=== PATIENT | female | born 1975 ===

== ENCOUNTER 2016-10-04 10:10 | Emergency (ER) | payer MEDICAID ==
[2016-10-04 10:23] VITALS: RESP 18
[2016-10-04 10:30] VITALS: BMI 23.3
[2016-10-04] MEDS ORDERED: Sodium Chloride 0.9% 1,000 ML IV ONE (11:10)
[2016-10-04] MEDS ORDERED: Sodium Chloride 0.9% 1,000 ML ONE (11:39)
[2016-10-04 11:44] LABS: BASO # 0.1 K/uL (0.0-0.2); BASO % 1.3 % (0.0-2.0); EOS # 0.6 K/uL (0.0-0.7); HEMATOCRIT 36.5 % (34.0-47.0); LYMPH # 2.5 K/uL (1.0-4.3); LYMPH % 28.5 % (20.0-40.0); MEAN CELL VOLUME 89.7 fL (81.0-99.0); MEAN CORPUSCULAR HEMOGLOBIN 29.7 pg (27.0-31.0); MEAN CORPUSCULAR HGB CONC 33.1 g/dL (33.0-37.0); MEAN PLATELET VOLUME 8.6 fL (7.2-11.7); MONO # 0.5 K/uL (0.0-0.8); MONO % 6.1 % (0.0-10.0); RED CELL DISTRIBUTION WIDTH 13.6 % (11.5-14.5); WHITE BLOOD COUNT 8.7 K/uL (4.8-10.8)
--- NOTE | 2016-10-04 11:46 | C.PDOC ---
History Of Present Illness 41 year old patient presents to the emergency department complaining of nausea and vomiting since yesterday. Patient states the fluid is yellow. Patient also complains of diarrhea and epigastric pain. The epigastric pain has a burning sensation that "feels like fire." Patient denies fever, chills, sick contacts, back pain, numbness, weakness, or urinary symptoms. Time Seen by Provider: 10/04/16 10:48 Chief Complaint (Nursing): Abdominal Pain History Per: Patient History/Exam Limitations: no limitations Onset/Duration Of Symptoms: Days (1) Current Symptoms Are (Timing): Still Present Context: Other Severity: Mild Pain Scale Rating Of: 3 Location Of Pain/Discomfort: Epigastric Radiation Of Pain To:: None Quality Of Discomfort: Burning, "Pain" Associated Symptoms: Nausea, Vomiting, Diarrhea Exacerbating Factors: None Alleviating Factors: None Last Bowel Movement: Today Recent travel outside of the [place]: No Abnormal Vaginal Bleeding: No Past Medical History Reviewed: Historical Data, Nursing Documentation, Vital Signs Vital Signs: Last Vital Signs Temp 98.6 F 10/04/16 13:36 Pulse 65 10/04/16 13:36 Resp 18 10/04/16 13:36 BP 123/66 10/04/16 13:36 Pulse Ox 100 10/04/16 13:36 Family History: States: Unknown Family Hx - Social History Hx Alcohol Use: Yes Hx Substance Use: No - Immunization History Hx Tetanus Toxoid Vaccination: No Hx Influenza Vaccination: No Hx Pneumococcal Vaccination: No Review Of Systems Except As Marked, All Systems Reviewed And Found Negative. Constitutional: Negative for: Fever, Chills Gastrointestinal: Positive for: Nausea, Vomiting, Abdominal Pain, Diarrhea Genitourinary: Negative for: Dysuria Musculoskeletal: Negative for: Back Pain Neurological: Negative for: Weakness, Numbness Physical Exam - Physical Exam Appears: Non-toxic, No Acute Distress Skin: Warm, Dry Head: Atraumatic, Normacephalic Eye(s): bilateral: Normal Inspection, PERRL, EOMI Oral Mucosa: Dry Neck: Normal ROM, Supple Chest: Symmetrical Cardiovascular: Rhythm Regular Respiratory: Normal Breath Sounds, No Rales, No Rhonchi, No Wheezing Gastrointestinal/Abdominal: Soft, Tenderness ((+)epigastric (-)RUQ), No Guarding , No Rebound Back: Normal Inspection, No CVA Tenderness Extremity: Normal ROM Neurological/Psych: Oriented x3, Normal Speech, Normal Cognition Gait: Steady ED Course And Treatment - Laboratory Results Result Diagrams: 10/04/16 11:41 10/04/16 11:41 Lab Interpretation: Normal O2 Sat by Pulse Oximetry: 100 (RA) Pulse Ox Interpretation: Normal Progress Note: Plan: -blood work. -Pepcid, Zofran, IV fluids. -Urinalysis Medical Decision Making Medical Decision Making: pt reports nausea reolved, decreased abdominbal pain. will order maalox and po challenge, and re-eval. 140 pt still with mild epigastric pain. will give toradol and discharge with pepcid and pmd f/u Disposition Counseled Patient/Family Regarding: Diagnosis, Need For Followup - Disposition Disposition: HOME/ ROUTINE Disposition Time: 13:43 Condition: IMPROVED Additional Instructions: Take medication as directed. Use Tylenol or Motrin. Drink tea, water, broth. Eat bland food like plain white rice, applesauce, toast tea. Follow up with your doctor on Friday. Return to ER for any worsening pain. Prescriptions: Famotidine [Pepcid] 20 mg PO DAILY #20 tab Forms: Gen Discharge Inst Lithuanian - Clinical Impression Clinical Impression: Gastroenteritis - PA / LIABILITY ANALYST / Resident Statement MD/DO has reviewed & agrees with the documentation as recorded. - Scribe Statement The provider has reviewed the documentation as recorded by the Scribe Elvira Rico All medical record entries made by the Scribe were at my direction and personally dictated by me. I have reviewed the chart and agree that the record accurately reflects my personal performance of the history, physical exam, medical decision making, and the department course for this patient. I have also personally directed, reviewed, and agree with the discharge instructions and disposition.
[2016-10-04 11:51] LABS: RBC URINE < 1 /hpf (0-3); URINE BACTERIA RARE (<OCC); URINE BILIRUBIN NEGATIVE (NEGATIVE); URINE BLOOD NEGATIVE (NEGATIVE); URINE COLOR Yellow (YELLOW); URINE GLUCOSE (UA) NORMAL (Normal); URINE KETONE NEGATIVE (NEGATIVE); URINE LEUKOCYTE ESTERASE NEG Leu/uL (Negative); URINE PROTEIN NEGATIVE (NEGATIVE); URINE UROBILINOGEN NORMAL mg/dL (0.2-1.0); WBC URINE 1 /hpf (0-5)
[2016-10-04 11:52] LABS: CHLORIDE 100 mmol/L (98-107); POTASSIUM 4.4 mmol/L (3.6-5.2); SODIUM 136 mmol/L (132-148)
[2016-10-04 11:54] LABS: ALB/GLOB RATIO 1.3 (1.0-2.1); ALKALINE PHOSPHATASE 51 U/L (38-126); AST/SGOT 26 U/L (14-36); BILIRUBIN,TOTAL 0.8 mg/dL (0.2-1.3); CARBON DIOXIDE 22 mmol/L (22-30); GFR AFRICAN-AMERICAN > 60; TOTAL PROTEIN 6.9 g/dL (6.3-8.3)
[2016-10-04 11:55] LABS: ALT/SGPT 25 U/L (9-52); BLOOD UREA NITROGEN 15 mg/dL (7-17); CALCIUM 8.7 mg/dl (8.6-10.4); GLUCOSE,RANDOM 84 mg/dL (65-105)
[2016-10-04] MEDS ORDERED: Aluminum Hydroxide/Magnesium Hydroxide Susp (30 mL) PO STA (12:23)
[2016-10-04] MEDS ORDERED: Aluminum Hydroxide/Magnesium Hydroxide Susp (30 mL) ONE (12:40)
[2016-10-04 13:59] VITALS: BP 107/64; PULSE 66; TEMP 98.3; O2SAT 99
== END 2016-10-04 13:55 | disposition home or self-care (01) ==
LOC: C.ER 10:10
DX: K52.9 Noninfective gastroenteritis and colitis, unspecified (principal)
CPT/HCPCS: 80053; 81001; 83690; 85025; 96361; 96372; 96374; 96375; 99285; J1885; J2405; J7040

== ENCOUNTER 2017-05-31 22:56 | Inpatient (IN) | payer MEDICAID ==
[2017-05-31 22:56] VITALS: BMI 23.3
--- NOTE | 2017-05-31 23:22 | C.PDOC ---
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 Patient states not having similar symptoms before, denies any other physical complaints. Time Seen by Provider: 05/31/17 23:13 Chief Complaint (Nursing): Abdominal Pain History Per: Patient History/Exam Limitations: no limitations Onset/Duration Of Symptoms: Hrs Current Symptoms Are (Timing): Still Present Context: Food Location Of Pain/Discomfort: Diffuse Radiation Of Pain To:: None Quality Of Discomfort: "Pain" Associated Symptoms: denies: Fever, Chills, Nausea, Vomiting, Diarrhea, Loss Of Appetite Exacerbating Factors: None Alleviating Factors: None Recent travel outside of the [place]: No Additional History Per: Patient Abnormal Vaginal Bleeding: No Past Medical History Reviewed: Historical Data, Nursing Documentation, Vital Signs Vital Signs: Last Vital Signs Temp 98.1 F 06/01/17 02:15 Pulse 80 06/01/17 02:15 Resp 24 06/01/17 02:15 BP 113/50 L 06/01/17 02:15 Pulse Ox 97 06/01/17 02:15 - Medical History PMH: No Chronic Diseases Surgical History: No Surg Hx Family History: States: Unknown Family Hx - Social History Hx Alcohol Use: Yes Hx Substance Use: No - Immunization History Hx Tetanus Toxoid Vaccination: No Hx Influenza Vaccination: No Hx Pneumococcal Vaccination: No Review Of Systems Constitutional: Negative for: Fever, Chills Cardiovascular: Negative for: Chest Pain Respiratory: Negative for: Cough, Shortness of Breath Gastrointestinal: Positive for: Abdominal Pain (Diffuse). Negative for: Nausea , Vomiting Genitourinary: Negative for: Dysuria, Hematuria, Vaginal Discharge, Vaginal Bleeding Musculoskeletal: Negative for: Back Pain Physical Exam - Physical Exam Appears: Non-toxic, No Acute Distress Skin: Warm, Dry Head: Atraumatic, Normacephalic Nose: No Epistaxis Oral Mucosa: Moist Cardiovascular: Rhythm Regular Respiratory: No Decreased Breath Sounds, No Accessory Muscle Use Gastrointestinal/Abdominal: Soft, Tenderness (Diffuse mostly epigastric region) Neurological/Psych: Oriented x3 ED Course And Treatment - Laboratory Results Result Diagrams: 05/31/17 23:44 05/31/17 23:44 Medical Decision Making Medical Decision Making: CT abdo/pelvis IV contrast: EXAM: CT Abdomen and Pelvis With Intravenous Contrast CLINICAL HISTORY: 41 years old, female; Pain; Abdominal pain; Prior surgery; Surgery type: Cholesyctomy TECHNIQUE: Axial computed tomography images of the abdomen and pelvis with intravenous contrast. All CT scans at this facility use one or more dose reduction techniques, viz.: automated exposure control; ma/kV adjustment per patient size (including targeted exams where dose is matched to indication; i.e. head); or iterative reconstruction technique. Coronal and sagittal reformatted images were created and reviewed. CONTRAST: 100 mL of [id number] administered intravenously. COMPARISON: No relevant prior studies available. FINDINGS: Lower thorax: No acute findings. . ABDOMEN: Liver: No acute abnormality as visualized. No mass. Gallbladder and bile ducts: No acute abnormality as visualized. No calcified stones. No ductal dilation. Pancreas: No acute abnormality as visualized. Spleen: No splenomegaly. Adrenals: No acute abnormality as visualized. Kidneys and ureters: Symmetric enhancement. No hydronephrosis. Stomach and bowel: No obstruction. Appendix: Dilated to 1.3 cm. Evidence of appendicoliths. Bowel wall appears thickened. PELVIS: Bladder: No acute abnormality as visualized. Reproductive: IUD in the uterus. Dominant 2.3 cm right ovarian follicle/cyst. ABDOMEN and PELVIS: Intraperitoneal space: Small amount of fluid/inflammatory stranding in the right lower quadrant. No free air. No significant fluid collection. Bones: Mild degenerative changes. Soft tissues: Bilateral breast prostheses. Extensive stranding with evidence of granulomas in the bilateral gluteal and pubic subcutaneous tissue, correlate with history. Vasculature: No acute abnormality as visualized. No abdominal aortic aneurysm. Lymph nodes: No acute abnormality as visualized. No enlarged lymph nodes. IMPRESSION: Appearance most consistent with acute appendicitis. Correlate clinically. Please see additional details/findings as above. 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 he disc w Dr Xiao- will admit plan for OR n am Disposition - Disposition Disposition: HOSPITALIZED Disposition Time: 03:18 Condition: STABLE Forms: wufoo (Telugu) - Clinical Impression Clinical Impression: Acute appendicitis - Scribe Statement The provider has reviewed the documentation as recorded by the Scribe Lonny Olvera All medical record entries made by the Scribe were at my direction and personally dictated by me. I have reviewed the chart and agree that the record accurately reflects my personal performance of the history, physical exam, medical decision making, and the department course for this patient. I have also personally directed, reviewed, and agree with the discharge instructions and disposition.
[2017-05-31] MEDS ORDERED: Aluminum Hydroxide/Magnesium Hydroxide Susp (30 mL) PO STA (23:25)
[2017-05-31] MEDS ORDERED: Lactated Ringer's 1,000 ML IV ONE (23:25)
[2017-05-31] MEDS ORDERED: Aluminum Hydroxide/Magnesium Hydroxide Susp (30 mL) ONE (23:33)
[2017-05-31 23:46] LABS: BASO # 0.1 K/uL (0.0-0.2); BASO % 0.9 % (0.0-2.0); EOS # 0.4 K/uL (0.0-0.7); EOS % 4.1 % (0.0-4.0); HEMATOCRIT 37.2 % (34.0-47.0); LYMPH # 3.6 K/uL (1.0-4.3); LYMPH % 38.9 % (20.0-40.0); MEAN CELL VOLUME 89.6 fL (81.0-99.0); MEAN CORPUSCULAR HEMOGLOBIN 29.9 pg (27.0-31.0); MEAN CORPUSCULAR HGB CONC 33.4 g/dL (33.0-37.0); MONO # 0.7 K/uL (0.0-0.8); MONO % 7.2 % (0.0-10.0); NRBC % 0.1 % (0.0-2.0); RED CELL DISTRIBUTION WIDTH 12.4 % (11.5-14.5); WHITE BLOOD COUNT 9.3 K/uL (4.8-10.8)
[2017-06-01 00:02] LABS: ALB/GLOB RATIO 1.5 (1.0-2.1); ALKALINE PHOSPHATASE 49 U/L (38-126); ALT/SGPT 47 U/L (9-52); AST/SGOT 39 U/L (14-36); BILIRUBIN,TOTAL 0.6 mg/dL (0.2-1.3); BLOOD UREA NITROGEN 17 mg/dL (7-17); CALCIUM 8.9 mg/dl (8.6-10.4); CARBON DIOXIDE 23 mmol/L (22-30); CHLORIDE 100 mmol/L (98-107); GFR AFRICAN-AMERICAN > 60; GLUCOSE,RANDOM 99 mg/dL (65-105); POTASSIUM 4.1 mmol/L (3.6-5.2); SODIUM 133 mmol/L (132-148); TOTAL PROTEIN 6.6 g/dL (6.3-8.3)
[2017-06-01 00:08] LABS: RBC URINE 4 /hpf (0-3); URINE BACTERIA RARE (<OCC); URINE BILIRUBIN NEGATIVE (NEGATIVE); URINE BLOOD NEGATIVE (NEGATIVE); URINE COLOR Yellow (YELLOW); URINE GLUCOSE (UA) NORMAL (Normal); URINE KETONE 1+ mg/dL (NEGATIVE); URINE LEUKOCYTE ESTERASE NEG Leu/uL (Negative); URINE PROTEIN 1+ mg/dL (NEGATIVE); URINE UROBILINOGEN NORMAL mg/dL (0.2-1.0); WBC URINE 3 /hpf (0-5)
[2017-06-01] MEDS ORDERED: Iodixanol 320 MG/ML 100 ML BOTTLE IV ONE (00:19)
[2017-06-01] MEDS ORDERED: Morphine 4 MG/ML VIAL ONE ×2 (00:28→03:21)
--- NOTE | 2017-06-01 01:52 | CT ---
EXAM: CT Abdomen and Pelvis With Intravenous Contrast CLINICAL HISTORY: 41 years old, female; Pain; Abdominal pain; Prior surgery; Surgery type: Cholesyctomy TECHNIQUE: Axial computed tomography images of the abdomen and pelvis with intravenous contrast. All CT scans at this facility use one or more dose reduction techniques, viz.: automated exposure control; ma/kV adjustment per patient size (including targeted exams where dose is matched to indication; i.e. head); or iterative reconstruction technique. Coronal and sagittal reformatted images were created and reviewed. CONTRAST: 100 mL of [id number] administered intravenously. COMPARISON: No relevant prior studies available. FINDINGS: Lower thorax: No acute findings. . ABDOMEN: Liver: No acute abnormality as visualized. No mass. Gallbladder and bile ducts: No acute abnormality as visualized. No calcified stones. No ductal dilation. Pancreas: No acute abnormality as visualized. Spleen: No splenomegaly. Adrenals: No acute abnormality as visualized. Kidneys and ureters: Symmetric enhancement. No hydronephrosis. Stomach and bowel: No obstruction. Appendix: Dilated to 1.3 cm. Evidence of appendicoliths. Bowel wall appears thickened. PELVIS: Bladder: No acute abnormality as visualized. Reproductive: IUD in the uterus. Dominant 2.3 cm right ovarian follicle/cyst. ABDOMEN and PELVIS: Intraperitoneal space: Small amount of fluid/inflammatory stranding in the right lower quadrant. No free air. No significant fluid collection. Bones: Mild degenerative changes. Soft tissues: Bilateral breast prostheses. Extensive stranding with evidence of granulomas in the bilateral gluteal and pubic subcutaneous tissue, correlate with history. Vasculature: No acute abnormality as visualized. No abdominal aortic aneurysm. Lymph nodes: No acute abnormality as visualized. No enlarged lymph nodes. IMPRESSION: Appearance most consistent with acute appendicitis. Correlate clinically. Please see additional details/findings as above.
[2017-06-01] MEDS ORDERED: Piperacill/Tazo 3.375gm in Dex 3.375 GM/50 ML BAG IVPB STA (01:56)
[2017-06-01] MEDS ORDERED: Lactated Ringer's 1,000 ML IV SCH (03:00)
--- NOTE | 2017-06-01 03:06 | CP.PCM.HP ---
History of Present Illness - History of Present Illness History of Present Illness: Surgery- Dr. Xiao 41F presented to [facility] ED with diffuse abdominal pain that started a few hours prior to arrival. Pain started suddenly while eating, with no relief. Pain is localized to the RLQ, described as sharp. No alleviating factors. Patient never had pain like this before. Associated nausea, non-bloody non-bilious vomiting x3. Denies: Fevers, chest pain, shortness of breath, diarrhea, vision changes, numbness/tingling in extremities PMH: GERD PSH: , R wrist surgery ALL: no drug allergies, tomatoes SocialHx: Denies ETOH, tobacco, recreational drug use Present on Admission - Present on Admission Any Indicators Present on Admission: No Past Patient History - Infectious Disease Hx of Infectious Diseases: None - Past Social History Smoking Status: Never Smoked - PSYCHIATRIC Hx Substance Use: No - SURGICAL HISTORY Hx Surgeries: Yes Hx Section: Yes Hx Orthopedic Surgery: Yes (Rt hand) - ANESTHESIA Hx Anesthesia: Yes Hx Anesthesia Reactions: No Meds Allergies/Adverse Reactions: Allergies Allergy/AdvReac Type Severity Reaction Status Date / Time tomato AdvReac Severe SWELLING Verified 05/31/17 23:24 Physical Exam - Constitutional Appears: Agitated - Head Exam Head Exam: ATRAUMATIC - Eye Exam Eye Exam: EOMI. absent: Scleral icterus - ENT Exam ENT Exam: Mucous Membranes Moist - Respiratory Exam Respiratory Exam: NORMAL BREATHING PATTERN. absent: Accessory Muscle Use, Respiratory Distress - Cardiovascular Exam Cardiovascular Exam: +S1, +S2 - GI/Abdominal Exam GI & Abdominal Exam: Guarding, Rebound, Soft, Tenderness. absent: Distended, Firm, Rigid Additional comments: voluntary guarding tender to palpation in RLQ +Mcburneys, +Rovsings during abd exam patient vomited clear fluid - Extremities Exam Extremities exam: Positive for: normal inspection. Negative for: calf tenderness - Neurological Exam Neurological exam: Alert, Oriented x3 - Psychiatric Exam Psychiatric exam: Normal Affect - Skin Skin Exam: Intact, Warm Results - Vital Signs Recent Vital Signs: Last Vital Signs Temp 98.1 F 06/01/17 02:15 Pulse 80 06/01/17 02:15 Resp 24 06/01/17 02:15 BP 113/50 L 06/01/17 02:15 Pulse Ox 97 06/01/17 02:15 - Labs Result Diagrams: 05/31/17 23:44 05/31/17 23:44 Labs: Laboratory Results - last 24 hr 05/31/17 05/31/17 05/31/17 23:44 23:44 23:59 WBC 9.3 RBC 4.16 Hgb 12.4 Hct 37.2 MCV 89.6 MCH 29.9 MCHC 33.4 RDW 12.4 Plt Count 255 MPV 8.0 Neut % (Auto) 48.9 L Lymph % (Auto) 38.9 [place] % (Auto) 7.2 Eos % (Auto) 4.1 H Baso % (Auto) 0.9 Neut # 4.6 Lymph # 3.6 [place] # 0.7 Eos # 0.4 Baso # 0.1 Sodium 133 Potassium 4.1 Chloride 100 Carbon Dioxide 23 Anion Gap 14 BUN 17 Creatinine 0.8 Est GFR ( Amer) > 60 Est GFR (Non-Af Amer) > 60 Random Glucose 99 Calcium 8.9 Total Bilirubin 0.6 AST 39 H ALT 47 Alkaline Phosphatase 49 Total Protein 6.6 Albumin 3.9 Globulin 2.7 Albumin/Globulin Ratio 1.5 Lipase 131 Urine Color Yellow Urine Clarity Clear Urine pH 7.0 Ur Specific [place] 1.029 Urine Protein 1+ H Urine Glucose (UA) Normal Urine Ketones 1+ H Urine Blood Negative Urine Nitrate Negative Urine Bilirubin Negative Urine Urobilinogen Normal Ur Leukocyte Esterase Neg Urine WBC (Auto) 3 Urine RBC (Auto) 4 H Ur Squamous Epith Cells 4 Urine Bacteria Rare Urine HCG, Qual 05/31/17 23:59 WBC RBC Hgb Hct MCV MCH MCHC RDW Plt Count MPV Neut % (Auto) Lymph % (Auto) [place] % (Auto) Eos % (Auto) Baso % (Auto) Neut # Lymph # [place] # Eos # Baso # Sodium Potassium Chloride Carbon Dioxide Anion Gap BUN Creatinine Est GFR ( Amer) Est GFR (Non-Af Amer) Random Glucose Calcium Total Bilirubin AST ALT Alkaline Phosphatase Total Protein Albumin Globulin Albumin/Globulin Ratio Lipase Urine Color Urine Clarity Urine pH Ur Specific [place] Urine Protein Urine Glucose (UA) Urine Ketones Urine Blood Urine Nitrate Urine Bilirubin Urine Urobilinogen Ur Leukocyte Esterase Urine WBC (Auto) Urine RBC (Auto) Ur Squamous Epith Cells Urine Bacteria Urine HCG, Qual Negative Assessment & Plan - Assessment and Plan (Free Text) Assessment: 41F w/ acute appendicitis Plan: - NPO - IVF & Abx - GI/DVT ppx - anti-emetic and pain control PRN - Plan for OR for lap appy - discussed w/ Dr. Xiao surgical attending Jony Chavez PGY1
[2017-06-01] MEDS: Piperacill/Tazo 3.375gm in Dex 3.375 GM/50 ML BAG IVPB SCH ×3 (03:15→19:50)
[2017-06-01] MEDS: Sodium Chloride 0.9% 1,000 ML IV SCH ×2 (03:18→23:32)
[2017-06-01] MEDS ORDERED: HYDROmorphone 0.5 mg/0.5 ml ISec ONE (03:36)
[2017-06-01 07:39] LABS: BASO # 0.1 K/uL (0.0-0.2); BASO % 0.5 % (0.0-2.0); EOS % 0.1 % (0.0-4.0); HEMATOCRIT 35.2 % (34.0-47.0); LYMPH # 1.7 K/uL (1.0-4.3); LYMPH % 14.1 % (20.0-40.0); MEAN CORPUSCULAR HEMOGLOBIN 29.6 pg (27.0-31.0); MEAN CORPUSCULAR HGB CONC 33.2 g/dL (33.0-37.0); MEAN PLATELET VOLUME 7.8 fL (7.2-11.7); MONO # 0.7 K/uL (0.0-0.8); MONO % 6.1 % (0.0-10.0); RED CELL DISTRIBUTION WIDTH 12.3 % (11.5-14.5); WHITE BLOOD COUNT 12.1 K/uL (4.8-10.8)
[2017-06-01] MEDS ORDERED: Bupivacaine-Epi 0.25%-1:200,000 PF Inj ONE ×2 (07:49→07:51)
[2017-06-01] MEDS ORDERED: ceFAZolin IV 1 gm in Dextrose 0 GM/0 ML BAG IVPB ONE (07:49)
[2017-06-01] MEDS ORDERED: Propofol 10 mg/ml Inj (20 ML) ONE (08:27)
[2017-06-01] MEDS ORDERED: Midazolam 2 MG/2 ML VIAL ONE (08:27)
[2017-06-01] MEDS ORDERED: Lactated Ringer's 1,000 ML IV ONE ×2 (08:30→10:45)
[2017-06-01] MEDS ORDERED: Neostigmine Methylsulfate 3mg/3ml Syringe IV ONE (08:52)
[2017-06-01] MEDS ORDERED: Rocuronium 10 mg/ml (5 ml) ONE (08:52)
[2017-06-01] MEDS ORDERED: Succinylcholine Chloride 20 mg/ml Syr (5 ml) IV ONE (08:52)
[2017-06-01 09:23] LABS: ALB/GLOB RATIO 1.5 (1.0-2.1); ALKALINE PHOSPHATASE 44 U/L (38-126); ALT/SGPT 48 U/L (9-52); AST/SGOT 40 U/L (14-36); BILIRUBIN,TOTAL 1.1 mg/dL (0.2-1.3); BLOOD UREA NITROGEN 13 mg/dL (7-17); CALCIUM 8.2 mg/dl (8.6-10.4); CARBON DIOXIDE 23 mmol/L (22-30); CHLORIDE 99 mmol/L (98-107); GFR AFRICAN-AMERICAN > 60; GLUCOSE,RANDOM 124 mg/dL (65-105); POTASSIUM 4.1 mmol/L (3.6-5.2); SODIUM 131 mmol/L (132-148); TOTAL PROTEIN 5.8 g/dL (6.3-8.3)
--- NOTE | 2017-06-01 09:42 | PCM.SURG1 ---
Surgeon's Initial Post Op Note - Surgeon's Notes Surgeon: Dr. Xiao Financial Supervisor: Teo PGY1, PGY1 Pre-Operative Diagnosis: Acute Appendicitis Operative Findings: multiple adhesions to abdmoninal wall. Left hyperemic ovarian cyst. Appendicitis Post-Operative Diagnosis: As above Operation Performed: Laparosopic appendicitis, lysis of adhesions Specimen/Specimens Removed: appendix Estimated Blood Loss: EBL {In ML}: 15 Drains Used: No Drains Post-Op Condition: Good Date of Surgery/Procedure: 06/01/17 Time of Surgery/Procedure: 08:30
[2017-06-01] MEDS: HYDROmorphone 0.5 mg/0.5 ml ISec IVP PRN ×4 (09:58→23:30)
[2017-06-01 18:00] VITALS: RESP 20
--- NOTE | 2017-06-01 19:59 | CP.PCM.CON ---
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 PMH denies PSH csection; wriste surgery OBGYN HX ' csectionx1; lp 05/19/2017; last pap 3 months ago normal as epr patient; Sexually active.Same partner for last 2 years Social hx denies tobacco,alcohol or illicit drug use Review of Systems - Review of Systems All systems: reviewed and no additional remarkable complaints except - Cardiovascular Cardiovascular: absent: Chest Pain, Dyspnea - Gastrointestinal Gastrointestinal: Abdominal Pain. absent: Nausea - Reproductive: Female Reproductive:Female: As Per HPI. absent: Vaginal Discharge, Vaginal Odor, Vaginal Pruritis Past Patient History - Infectious Disease Hx of Infectious Diseases: None - Past Medical History & Family History Past Medical History?: No - Past Social History Smoking Status: Never Smoked - CARDIAC Hx Cardiac Disorders: No - PULMONARY Hx Respiratory Disorders: No - NEUROLOGICAL Hx Dementia: No - RENAL Hx Chronic Kidney Disease: No - HEMATOLOGICAL/ONCOLOGICAL Hx Blood Disorders: No - MUSCULOSKELETAL/RHEUMATOLOGICAL Hx Falls: No - PSYCHIATRIC Hx Substance Use: No - SURGICAL HISTORY Hx Surgeries: Yes Hx Section: Yes Hx Orthopedic Surgery: Yes (Rt hand) - ANESTHESIA Hx Anesthesia: Yes Hx Anesthesia Reactions: No Meds Allergies/Adverse Reactions: Allergies Allergy/AdvReac Type Severity Reaction Status Date / Time tomato AdvReac Severe SWELLING Verified 05/31/17 23:24 - Medications Medications: Current Medications Hydromorphone HCl (Dilaudid) 0.5 mg IVP Q4H PRN PRN Reason: Pain, moderate (4-7) Last Admin: 06/01/17 16:43 Dose: 0.5 mg Hydromorphone HCl (Dilaudid) 1 mg IVP Q4H PRN PRN Reason: Pain, severe (8-10) Last Admin: 06/01/17 03:58 Dose: 1 mg Sodium Chloride (Sodium Chloride 0.9%) 1,000 mls @ 100 mls/hr IV .Q10H [facility] Last Admin: 06/01/17 03:18 Dose: 100 mls/hr Lactated Ringer's (Lactated Ringer's) 1,000 mls @ 100 mls/hr IV .Q10H [facility] Piperacillin Sod/Tazobactam Sod (Zosyn 3.375 Gm Iv Premix) 3.375 gm in 50 mls @ 100 mls/hr IVPB Q8H [facility] Last Admin: 06/01/17 19:50 Dose: 100 mls/hr Ondansetron HCl (Zofran Inj) 4 mg IVP Q4 PRN PRN Reason: Nausea/Vomiting Pantoprazole Sodium (Protonix Inj) 40 mg IVP DAILY [facility] Physical Exam - Constitutional Appears: Well, No Acute Distress - Respiratory Exam Respiratory Exam: Clear to Auscultation Bilateral, NORMAL BREATHING PATTERN - Cardiovascular Exam Cardiovascular Exam: REGULAR RHYTHM - GI/Abdominal Exam GI & Abdominal Exam: Soft, Tenderness. absent: Rebound, Rigid - Extremities Exam Extremities exam: Negative for: calf tenderness - Neurological Exam Neurological exam: Alert, Oriented x3 - Psychiatric Exam Psychiatric exam: Normal Affect, Normal Mood - Skin Skin Exam: Normal Color Results - Vital Signs Recent Vital Signs: Last Vital Signs Temp 98.4 F 06/01/17 15:17 Pulse 87 06/01/17 15:17 Resp 20 06/01/17 15:17 BP 113/67 06/01/17 15:17 Pulse Ox 98 06/01/17 15:17 - Labs Result Diagrams: 06/01/17 07:26 06/01/17 09:13 Labs: Laboratory Results - last 24 hr 05/31/17 05/31/17 05/31/17 23:44 23:44 23:59 WBC 9.3 RBC 4.16 Hgb 12.4 Hct 37.2 MCV 89.6 MCH 29.9 MCHC 33.4 RDW 12.4 Plt Count 255 MPV 8.0 Neut % (Auto) 48.9 L Lymph % (Auto) 38.9 [place] % (Auto) 7.2 Eos % (Auto) 4.1 H Baso % (Auto) 0.9 Neut # 4.6 Lymph # 3.6 [place] # 0.7 Eos # 0.4 Baso # 0.1 Sodium 133 Potassium 4.1 Chloride 100 Carbon Dioxide 23 Anion Gap 14 BUN 17 Creatinine 0.8 Est GFR ( Amer) > 60 Est GFR (Non-Af Amer) > 60 Random Glucose 99 Calcium 8.9 Total Bilirubin 0.6 AST 39 H ALT 47 Alkaline Phosphatase 49 Total Protein 6.6 Albumin 3.9 Globulin 2.7 Albumin/Globulin Ratio 1.5 Lipase 131 Urine Color Yellow Urine Clarity Clear Urine pH 7.0 Ur Specific [place] 1.029 Urine Protein 1+ H Urine Glucose (UA) Normal Urine Ketones 1+ H Urine Blood Negative Urine Nitrate Negative Urine Bilirubin Negative Urine Urobilinogen Normal Ur Leukocyte Esterase Neg Urine WBC (Auto) 3 Urine RBC (Auto) 4 H Ur Squamous Epith Cells 4 Urine Bacteria Rare Urine HCG, Qual 05/31/17 06/01/17 06/01/17 23:59 07:26 09:13 WBC 12.1 H RBC 3.95 Hgb 11.7 Hct 35.2 MCV 89.0 MCH 29.6 MCHC 33.2 RDW 12.3 Plt Count 219 MPV 7.8 Neut % (Auto) Lymph % (Auto) 14.1 L [place] % (Auto) 6.1 Eos % (Auto) 0.1 Baso % (Auto) 0.5 Neut # Lymph # 1.7 [place] # 0.7 Eos # 0.0 Baso # 0.1 Sodium 131 L Potassium 4.1 Chloride 99 Carbon Dioxide 23 Anion Gap 13 BUN 13 Creatinine 0.7 Est GFR ( Amer) > 60 Est GFR (Non-Af Amer) > 60 Random Glucose 124 H Calcium 8.2 L Total Bilirubin 1.1 AST 40 H ALT 48 Alkaline Phosphatase 44 Total Protein 5.8 L Albumin 3.5 Globulin 2.4 Albumin/Globulin Ratio 1.5 Lipase Urine Color Urine Clarity Urine pH Ur Specific [place] Urine Protein Urine Glucose (UA) Urine Ketones Urine Blood Urine Nitrate Urine Bilirubin Urine Urobilinogen Ur Leukocyte Esterase Urine WBC (Auto) Urine RBC (Auto) Ur Squamous Epith Cells Urine Bacteria Urine HCG, Qual Negative - Impressions Impression: CT scan of abdomen done prepo shows appendicitis and right ovarian follicle Assessment & Plan (1) Ovarian cyst Assessment and Plan: Patient s/p findings of hyperemeic left ovarian cyst at time of surgery.Recommend ultrasound to characterize the cyst.Monitor patient clinically. Status: Acute (2) Acute appendicitis Assessment and Plan: s/p appendectomy continue management as per surgery team Status: Acute
--- NOTE | 2017-06-01 21:15 | OP ---
PROCEDURE DATE: 06/01/2017 PREOPERATIVE DIAGNOSIS: Acute appendicitis. POSTOPERATIVE DIAGNOSES: Acute appendicitis with pelvic adhesions. PROCEDURE PERFORMED: Laparoscopic appendectomy and partial lysis of adhesions. SURGEON: Froylan Xiao MD FINDINGS: In the abdomen, there were extensive adhesions noted mostly on the right lower abdomen and in the pelvis. This is probably due to a previous C section. On the right side, the appendix was found to be markedly dilated, but there was no perforation. There was no fluid in the peritoneal cavity. Of note was a cystic *------* structure covered with some peritoneal tissue on the right adnexa. The left tube and ovaries were normal. The uterus appears to be normal in size; no fibroids were noted. In the right lower quadrant, the appendix was found to be markedly dilated. It was slightly hyperemic, but there was no gross perforation noted. DESCRIPTION OF PROCEDURE: Under general anesthesia, the patient was prepared and draped in the usual sterile fashion. A 0.25% Marcaine with epinephrine was injected in the umbilical area, and an incision was made in the inferior portion of the umbilicus. A 12-mm trocar was inserted under direct vision followed by a 5-mm suprapubic port and a 5-mm left lower quadrant port. This patient's habitus was such that her torso was so short that there was no room between these three trocars; however, with some effort with the patient in the Trendelenburg position and turned over towards the left side, the appendix was identified. It was transected at the base with the old suture model and the AZUL, so was the mesoappendix. The appendix with the mesoappendix was then placed in the EndoCatch and was extracted through the umbilical port. No bleeding was noted. The area was irrigated with saline solution, and the irrigating fluid was suctioned out. CO2 was allowed to escape from the peritoneal cavity, trocars removed, and the wound closed in a routine fashion. No cultures were taken. No pictures were taken. The estimated blood loss probably approximated to about 15 mL. Froylan Xiao MD
[2017-06-02] MEDS: Piperacill/Tazo 3.375gm in Dex 3.375 GM/50 ML BAG IVPB SCH ×3 (02:23→19:00)
[2017-06-02] MEDS: HYDROmorphone 0.5 mg/0.5 ml ISec IVP PRN (06:46)
[2017-06-02 07:21] LABS: BASO % 0.3 % (0.0-2.0); HEMATOCRIT 33.9 % (34.0-47.0); LYMPH # 2.1 K/uL (1.0-4.3); LYMPH % 13.5 % (20.0-40.0); MEAN CELL VOLUME 90.9 fL (81.0-99.0); MEAN PLATELET VOLUME 8.3 fL (7.2-11.7); MONO % 6.6 % (0.0-10.0); RED CELL DISTRIBUTION WIDTH 12.8 % (11.5-14.5); WHITE BLOOD COUNT 15.7 K/uL (4.8-10.8)
[2017-06-02 07:49] LABS: ALB/GLOB RATIO 1.4 (1.0-2.1); ALKALINE PHOSPHATASE 41 U/L (38-126); ALT/SGPT 41 U/L (9-52); AST/SGOT 28 U/L (14-36); BILIRUBIN,TOTAL 0.9 mg/dL (0.2-1.3); BLOOD UREA NITROGEN 10 mg/dL (7-17); CALCIUM 8.1 mg/dl (8.6-10.4); CARBON DIOXIDE 23 mmol/L (22-30); CHLORIDE 104 mmol/L (98-107); GFR AFRICAN-AMERICAN > 60; GLUCOSE,RANDOM 104 mg/dL (65-105); POTASSIUM 4.4 mmol/L (3.6-5.2); SODIUM 133 mmol/L (132-148); TOTAL PROTEIN 5.7 g/dL (6.3-8.3)
[2017-06-02] MEDS: Enoxaparin 40 mg Syringe SC SCH (10:34)
[2017-06-02] MEDS: Sodium Chloride 0.9% 1,000 ML IV SCH ×3 (12:00→19:15)
--- NOTE | 2017-06-02 13:51 | US ---
HISTORY: L hyperemic ovarian cyst COMPARISON: None available. TECHNIQUE: Transabdominal and transvaginal FINDINGS: UTERUS: Measures 8.7 x 4.4 x 6.2 cm. Normal in size and appearance. No fibroid or other mass lesion seen. ENDOMETRIUM: Measures 6 mm in diameter. An intrauterine device is seen situated centrally within the endometrial echo complex. There is no endometrial fluid seen. CERVIX: No cervical abnormality identified. RIGHT OVARY: Measures 3.4 x 2.1 x 2.5 cm. No solid mass. Normal flow. Physiologic cyst, 1.4 cm. LEFT OVARY: Measures 2.8 x 2.6 x 2.5 cm. No solid mass. Normal flow. FREE FLUID: Small amount of fluid in cul-de-sac. OTHER FINDINGS: None. IMPRESSION: Intrauterine device situated appropriately within the endometrial echo complex. 1.4 cm right ovarian cyst.
--- NOTE | 2017-06-02 15:08 | CP.PCM.DIS ---
Provider - Provider Date of Admission: 06/01/17 03:18 Attending physician: Froylan Xiao MD Consults: Dr. Pires (OB-[employer] MANAGER) Time Spent in preparation of Discharge (in minutes): 30 Hospital Course - Lab Results Lab Results: Most Recent Lab Values WBC 15.7 K/uL (4.8-10.8) H 06/02/17 06:59 RBC 3.73 Mil/uL (3.80-5.20) L 06/02/17 06:59 Hgb 11.2 g/dL (11.0-16.0) 06/02/17 06:59 Hct 33.9 % (34.0-47.0) L 06/02/17 06:59 MCV 90.9 fL (81.0-99.0) 06/02/17 06:59 MCH 30.0 pg (27.0-31.0) 06/02/17 06:59 MCHC 33.0 g/dL (33.0-37.0) 06/02/17 06:59 RDW 12.8 % (11.5-14.5) 06/02/17 06:59 Plt Count 238 K/uL (130-400) 06/02/17 06:59 MPV 8.3 fL (7.2-11.7) 06/02/17 06:59 Neut % (Auto) 79.6 % (50.0-75.0) H 06/02/17 06:59 Lymph % (Auto) 13.5 % (20.0-40.0) L 06/02/17 06:59 [place] % (Auto) 6.6 % (0.0-10.0) 06/02/17 06:59 Eos % (Auto) 0.0 % (0.0-4.0) 06/02/17 06:59 Baso % (Auto) 0.3 % (0.0-2.0) 06/02/17 06:59 Neut # 12.5 K/uL (1.8-7.0) H 06/02/17 06:59 Lymph # 2.1 K/uL (1.0-4.3) 06/02/17 06:59 [place] # 1.0 K/uL (0.0-0.8) H 06/02/17 06:59 Eos # 0.0 K/uL (0.0-0.7) 06/02/17 06:59 Baso # 0.0 K/uL (0.0-0.2) 06/02/17 06:59 Sodium 133 mmol/L (132-148) 06/02/17 06:59 Potassium 4.4 mmol/L (3.6-5.2) 06/02/17 06:59 Chloride 104 mmol/L (98-107) 06/02/17 06:59 Carbon Dioxide 23 mmol/L (22-30) 06/02/17 06:59 Anion Gap 11 (10-20) 06/02/17 06:59 BUN 10 mg/dL (7-17) 06/02/17 06:59 Creatinine 0.9 mg/dL (0.7-1.2) 06/02/17 06:59 Est GFR ( Amer) > 60 06/02/17 06:59 Est GFR (Non-Af Amer) > 60 06/02/17 06:59 Random Glucose 104 mg/dL (65-105) 06/02/17 06:59 Calcium 8.1 mg/dl (8.6-10.4) L 06/02/17 06:59 Total Bilirubin 0.9 mg/dL (0.2-1.3) 06/02/17 06:59 AST 28 U/L (14-36) 06/02/17 06:59 ALT 41 U/L (9-52) 06/02/17 06:59 Alkaline Phosphatase 41 U/L (38-126) 06/02/17 06:59 Total Protein 5.7 g/dL (6.3-8.3) L 06/02/17 06:59 Albumin 3.3 g/dL (3.5-5.0) L 06/02/17 06:59 Globulin 2.4 gm/dL (2.2-3.9) 06/02/17 06:59 Albumin/Globulin Ratio 1.4 (1.0-2.1) 06/02/17 06:59 Lipase 131 U/L (23-300) 05/31/17 23:44 Urine Color Yellow (YELLOW) 05/31/17 23:59 Urine Clarity Clear (Clear) 05/31/17 23:59 Urine pH 7.0 (5.0-8.0) 05/31/17 23:59 Ur Specific [place] 1.029 (1.003-1.030) 05/31/17 23:59 Urine Protein 1+ mg/dL (NEGATIVE) H 05/31/17 23:59 Urine Glucose (UA) Normal mg/dL (Normal) 05/31/17 23:59 Urine Ketones 1+ mg/dL (NEGATIVE) H 05/31/17 23:59 Urine Blood Negative (NEGATIVE) 05/31/17 23:59 Urine Nitrate Negative (NEGATIVE) 05/31/17 23:59 Urine Bilirubin Negative (NEGATIVE) 05/31/17 23:59 Urine Urobilinogen Normal mg/dL (0.2-1.0) 05/31/17 23:59 Ur Leukocyte Esterase Neg [place]/uL (Negative) 05/31/17 23:59 Urine WBC (Auto) 3 /hpf (0-5) 05/31/17 23:59 Urine RBC (Auto) 4 /hpf (0-3) H 05/31/17 23:59 Ur Squamous Epith Cells 4 /hpf (0-5) 05/31/17 23:59 Urine Bacteria Rare (<OCC) 05/31/17 23:59 Urine HCG, Qual Negative (NEGATIVE) 05/31/17 23:59 - Hospital Course Hospital Course: 41yo F with PMHx of GERD, presented to [facility] ED on 1117 with RLQ abdominal pain that started a few hours prior to arrival. Pt had associated nausea, non-bloody non-bilious vomiting x3. CT showed acute appendicitis. Patient was kept NPO, given IV Zosyn, pain control, Protonix and IV fluids. That morning, the patient was taken to the OR for laparoscopic appendectomy with lysis of adhesions. A hyperemic ovarian cyst was seen intraop so OB-cardiac rn was consulted. A Pelvis/Transvaginal US was done to characterize the cyst which showed 1.4cm right ovarian cyst - physiologic in nature. No further cardiac rn intervention necessary. On POD#1, patient was tolerating diet, ambulating, pain well controlled. Patient was discharged home to follow up with Dr. Xiao in his office. Discharge Exam - Head Exam Head Exam: ATRAUMATIC - Eye Exam Eye Exam: EOMI, Normal appearance - Respiratory Exam Respiratory Exam: NORMAL BREATHING PATTERN. absent: Respiratory Distress - Cardiovascular Exam Cardiovascular Exam: +S1, +S2 - GI/Abdominal Exam GI & Abdominal Exam: Soft, Tenderness (mild tenderness at incision sites). absent: Distended, Firm, Guarding, Hernia Additional comments: Dressings clean/dry/intact - Neurological Exam Neurological exam: Alert, CN II-XII Intact, Oriented x3 - Psychiatric Exam Psychiatric exam: Normal Affect, Normal Mood - Skin Skin Exam: Dry, Normal Color, Warm Discharge Plan - Follow Up Plan Condition: STABLE Disposition: HOME/ ROUTINE Patient education suggested?: Yes Instructions: Laparoscopic Appendectomy (DC) Additional Instructions: May remove top dressings 48 hours after surgery, after removal, may shower Leave white steri strips in place, they will fall off on their own over time Do not take a bath or swim for 2 weeks Avoid heavy lifting for 4 weeks Follow up with Dr. Xiao in his office in 1-2 weeks Follow up with ob-cardiac rn Referrals: Froylan Xiao MD [Staff Provider] -
--- NOTE | 2017-06-02 15:31 | CP.PCM.PN ---
<Jeyson Whitaker - Last Filed: 06/02/17 15:26> Subjective - Date & Time of Evaluation Date of Evaluation: 06/02/17 Time of Evaluation: 15:27 - Subjective Subjective: PGY-1 [employer] note for Dr Paris. Patient was seen and examined at bedside. She was resting comfortably in bed watching TV. Patient complained of minor pain at the surgical site that resolved after receiving pain med. She denied pelvic pain, abnormal vaginal discharge, vaginal bleeding, nausea, vomiting, fever, chills. Objective - Vital Signs/Intake and Output Vital Signs (last 24 hours): Temp Pulse Resp BP Pulse Ox 97.4 F L 74 20 104/61 96 06/02/17 08:06 06/02/17 08:06 06/02/17 08:06 06/02/17 08:06 06/02/17 08:06 Intake and Output: 06/02/17 06/02/17 06:59 18:59 Intake Total 800 700 Output Total 800 Balance 0 700 - Medications Medications: Current Medications Enoxaparin Sodium (Lovenox) 40 mg SC DAILY [facility] Last Admin: 06/02/17 10:34 Dose: 40 mg Hydromorphone HCl (Dilaudid) 0.5 mg IVP Q4H PRN PRN Reason: Pain, moderate (4-7) Last Admin: 06/02/17 06:46 Dose: 0.5 mg Hydromorphone HCl (Dilaudid) 1 mg IVP Q4H PRN PRN Reason: Pain, severe (8-10) Last Admin: 06/02/17 10:43 Dose: 1 mg Sodium Chloride (Sodium Chloride 0.9%) 1,000 mls @ 100 mls/hr IV .Q10H [facility] Last Admin: 06/02/17 14:45 Dose: Not Given Lactated Ringer's (Lactated Ringer's) 1,000 mls @ 100 mls/hr IV .Q10H [facility] Piperacillin Sod/Tazobactam Sod (Zosyn 3.375 Gm Iv Premix) 3.375 gm in 50 mls @ 100 mls/hr IVPB Q8H [facility] Last Admin: 06/02/17 02:23 Dose: 100 mls/hr Ondansetron HCl (Zofran Inj) 4 mg IVP Q4 PRN PRN Reason: Nausea/Vomiting Pantoprazole Sodium (Protonix Inj) 40 mg IVP DAILY [facility] Last Admin: 06/02/17 10:36 Dose: 40 mg - Labs Labs: 06/02/17 06:59 06/02/17 06:59 - Constitutional Appears: Well, No Acute Distress - Respiratory Exam Respiratory Exam: Clear to Ausculation Bilateral, NORMAL BREATHING PATTERN. absent: Rales, Rhonchi, Wheezes - Cardiovascular Exam Cardiovascular Exam: REGULAR RHYTHM, +S1, +S2. absent: Bradycardia, Tachycardia , JVD, Murmur - GI/Abdominal Exam GI & Abdominal Exam: Soft, Tenderness, Normal Bowel Sounds. absent: Distended, Firm, Guarding, Rigid Additional comments: mild tenderness to palpation in lower right and lower left quadrants - Extremities Exam Extremities Exam: Normal Capillary Refill, Normal Inspection. absent: Pedal Edema, Tenderness - Neurological Exam Neurological Exam: Alert, Awake, Oriented x3 - Skin Skin Exam: Intact, Normal Color, Warm Assessment and Plan - Assessment and Plan (Free Text) Assessment: (1) Ovarian cyst Assessment and Plan: Patient s/p findings of hyperemeic left ovarian cyst at time of surgery Transvaginal ultrasound 06/02: RIGHT OVARY: Measures 3.4 x 2.1 x 2.5 cm. No solid mass. Normal flow. Physiologic cyst, 1.4 cm. LEFT OVARY: Measures 2.8 x 2.6 x 2.5 cm. No solid mass. Normal flow. 06/02/17: Findings on transvaginal ultrasound most consistent with physiologic cyst. No threshing department supervisor intervention indicated at this time. Patient see's [facility], Dr Garrison, in [place] whom she last saw 1 month ago. Patient advised to follow- up with Dr Garrison regarding transvagical findings. We will sign off at this time , thank you very much for the pleasure of this consultation. Status: Acute (2) Acute appendicitis Assessment and Plan: s/p appendectomy continue management as per surgery team Status: Acute <Wellington,Anna A - Last Filed: 06/02/17 20:20> Objective - Vital Signs/Intake and Output Vital Signs (last 24 hours): Temp Pulse Resp BP Pulse Ox 97.7 F 79 20 109/71 98 06/02/17 15:52 06/02/17 15:52 06/02/17 15:52 06/02/17 15:52 06/02/17 15:52 Intake and Output: 06/02/17 06/03/17 18:59 06:59 Intake Total 700 Balance 700 - Medications Medications: Current Medications Docusate Sodium (Colace) 100 mg PO TID [facility] Enoxaparin Sodium (Lovenox) 40 mg SC DAILY [facility] Last Admin: 06/02/17 10:34 Dose: 40 mg Hydromorphone HCl (Dilaudid) 0.5 mg IVP Q4H PRN PRN Reason: Pain, moderate (4-7) Last Admin: 06/02/17 06:46 Dose: 0.5 mg Hydromorphone HCl (Dilaudid) 1 mg IVP Q4H PRN PRN Reason: Pain, severe (8-10) Last Admin: 06/02/17 10:43 Dose: 1 mg Sodium Chloride (Sodium Chloride 0.9%) 1,000 mls @ 100 mls/hr IV .Q10H [facility] Last Admin: 06/02/17 14:45 Dose: Not Given Lactated Ringer's (Lactated Ringer's) 1,000 mls @ 100 mls/hr IV .Q10H [facility] Piperacillin Sod/Tazobactam Sod (Zosyn 3.375 Gm Iv Premix) 3.375 gm in 50 mls @ 100 mls/hr IVPB Q8H [facility] Last Admin: 06/02/17 11:30 Dose: 100 mls/hr Ondansetron HCl (Zofran Inj) 4 mg IVP Q4 PRN PRN Reason: Nausea/Vomiting Pantoprazole Sodium (Protonix Inj) 40 mg IVP DAILY [facility] Last Admin: 06/02/17 10:36 Dose: 40 mg - Labs Labs: 06/02/17 06:59 06/02/17 06:59 Attending/Attestation - Attestation I have personally seen and examined this patient.: Yes I have fully participated in the care of the patient.: Yes I have reviewed all pertinent clinical information, including history, physical exam and plan: Yes Notes (Text): 06/02/17 20:09 Patient is predominantly Italian-speaking; Clinical Partner, Erma, served as core baker. Patient received in room 651-A at approximately 1830 hours: sitting up in bed in good spirits; Venodynes in place. Patient has no actue complaints: tolerating p.o. without nausea or vomiting Finding of right ovarian cyst measuring 1.4 cm, normal left ovary, and confirmation of IUD in utero was discussed with patient. Normal physiologic nature of cyst was explained. Patient acknowledges the same: states was told by her private natural fabricator, Dr. Garrison, in [place], at the time of her most recent natural fabricator visit 3 months ago, "that the cyst would disappear". ..."I see him in 5 months". Assessment: POD#!, 41 y.o. S/P laparoscopic appendectomy with incidental finding of physiologic right ovarian cyst; IUD in situ. No natural fabricator intervention is indicated. Patient to follow up with private natural fabricator provider as previously determined. Clinically stable. Plan: 1) As per primary surgical team Thank you for the pleasure of this consultation
[2017-06-03] MEDS: Sodium Chloride 0.9% 1,000 ML IV SCH ×2 (01:59→05:15)
[2017-06-03] MEDS: Piperacill/Tazo 3.375gm in Dex 3.375 GM/50 ML BAG IVPB SCH ×2 (02:02→11:39)
[2017-06-03 06:48] LABS: BASO # 0.1 K/uL (0.0-0.2); BASO % 0.9 % (0.0-2.0); EOS # 0.2 K/uL (0.0-0.7); EOS % 1.7 % (0.0-4.0); HEMATOCRIT 33.8 % (34.0-47.0); LYMPH # 3.9 K/uL (1.0-4.3); LYMPH % 38.4 % (20.0-40.0); MEAN CELL VOLUME 91.1 fL (81.0-99.0); MEAN CORPUSCULAR HEMOGLOBIN 29.9 pg (27.0-31.0); MEAN CORPUSCULAR HGB CONC 32.8 g/dL (33.0-37.0); MEAN PLATELET VOLUME 8.6 fL (7.2-11.7); MONO # 0.5 K/uL (0.0-0.8); MONO % 5.4 % (0.0-10.0); RED CELL DISTRIBUTION WIDTH 12.9 % (11.5-14.5); WHITE BLOOD COUNT 10.1 K/uL (4.8-10.8)
[2017-06-03 07:06] LABS: ALKALINE PHOSPHATASE 37 U/L (38-126); ALT/SGPT 47 U/L (9-52); AST/SGOT 27 U/L (14-36); BILIRUBIN,TOTAL 0.3 mg/dL (0.2-1.3); BLOOD UREA NITROGEN 12 mg/dL (7-17); CALCIUM 7.7 mg/dl (8.6-10.4); CARBON DIOXIDE 22 mmol/L (22-30); CHLORIDE 104 mmol/L (98-107); GFR AFRICAN-AMERICAN > 60; GLUCOSE,RANDOM 83 mg/dL (65-105); POTASSIUM 4.2 mmol/L (3.6-5.2); SODIUM 132 mmol/L (132-148); TOTAL PROTEIN 6.7 g/dL (6.3-8.3)
[2017-06-03 07:13] LABS: ALB/GLOB RATIO 0.9 (1.0-2.1)
[2017-06-03] MEDS: Enoxaparin 40 mg Syringe SC SCH (09:01)
[2017-06-03] MEDS ORDERED: Influenza Vaccine 60 mcg/0.5 mL SYR (4YR UP) IM ONE (10:00)
[2017-06-03 16:04] VITALS: BP 104/68; PULSE 79; TEMP 98.6; O2SAT 98
== END 2017-06-03 17:14 | disposition home or self-care (01) | DRG 883 ==
LOC: C.ER 22:56 → C.9E 06-01 03:18 → C.6T 06-01 13:35
PROVIDERS: ADMIT Surgery; ATTEND Surgery
PROC: 0DTJ4ZZ Resection of Appendix, Percutaneous Endoscopic Approach (ICD-10-PCS; principal; 2017-06-01 08:00)
DX: K35.80 Unspecified acute appendicitis (principal); K66.0 Peritoneal adhesions (postprocedural) (postinfection); N73.6 Female pelvic peritoneal adhesions (postinfective); N83.201 Unspecified ovarian cyst, right side